=== PATIENT | male | born 1950 | race African-American/Black ===

== ENCOUNTER 2018-01-29 00:32 | Emergency (ER) | payer MEDICARE, OTHER ==
[2018-01-29 00:49] VITALS: BP 127/80
[2018-01-29] MEDS ORDERED: ONDANSETRON 4 MG TAB.RAPDIS PO ONE (01:13)
--- NOTE | 2018-01-29 01:15 | ER Document Report ---
ED Medical Screen (RME) - General Chief Complaint: Nausea/Vomiting Stated Complaint: ABDOMINAL PAIN Time Seen by Provider: 01/29/18 01:13 Notes: 68-year-old male chief complaint of upper abdominal pain and vomiting, states symptoms started after he ate fried chicken for dinner. Pain radiates around to his flank. Denies chest pain, shortness of breath, fever. Past medical history of appendectomy, denies any other abdominal surgeries. Denies hematemesis. TRAVEL OUTSIDE OF THE [place] IN LAST 30 DAYS: No - Related Data Allergies/Adverse Reactions: Insulins - Human [Insulins, Human] Allergy (Intermediate, Verified 05/25/14 13: 59) RASH aspirin [Aspirin] Allergy (Verified 05/25/14 14:14) Penicillins Allergy (Verified 05/25/14 13:59) simvastatin [Simvastatin] Allergy (Verified 05/25/14 14:15) Past Medical History - Past Medical History Cardiac Medical History: Reports: Hx Hypertension Denies: Hx Coronary Artery Disease, Hx Heart Attack Pulmonary Medical History: Reports: Hx Bronchitis Denies: Hx Asthma, Hx COPD, Hx Pneumonia Neurological Medical History: Denies: Hx Cerebrovascular Accident, Hx Seizures Renal/ Medical History: Denies: Hx Peritoneal Dialysis Musculoskeltal Medical History: Reports Hx Arthritis - SHOULDERS, RIGHT KNEE Psychiatric Medical History: Denies: Hx Depression Past Surgical History: Denies: Hx Pacemaker - Immunizations Hx Diphtheria, Pertussis, Tetanus Vaccination: Yes Physical Exam - Vital signs Vitals: Temp Pulse Resp BP Pulse Ox 97.9 F 86 18 127/80 H 100 01/29/18 00:40 01/29/18 00:40 01/29/18 00:40 01/29/18 00:40 01/29/18 00:40 - Abdominal Tenderness: Tender - Generalized upper abdominal pain, lower abdomen unremarkable, exam limited by sitting position Course - Vital Signs Vital signs: Temp Pulse Resp BP Pulse Ox 97.9 F 86 18 127/80 H 100 01/29/18 00:40 01/29/18 00:40 01/29/18 00:40 01/29/18 00:40 01/29/18 00:40 Doctor's Discharge - Discharge Referrals: LISA MENDOZA MD [Primary Care Provider] - Follow up as needed
--- NOTE | 2018-01-29 02:19 | ER Document Report ---
ED GI/ - General Chief Complaint: Nausea/Vomiting Stated Complaint: ABDOMINAL PAIN Time Seen by Provider: 01/29/18 01:13 Notes: Patient is a 68-year-old male that comes to the emergency department for chief complaint of upper abdominal pain and vomiting, he states that he had eaten a meal including fried chicken and within 30 minutes of this he started having upper abdominal pain and he has vomited 4 times. He denies flank pain, chest pain, shortness of breath, fever, hematemesis, abnormal bowel movements. Past medical history includes type 2 diabetes, hypertension, appendectomy. He states he has had a normal colonoscopy and endoscopy in the past. TRAVEL OUTSIDE OF THE [place] IN LAST 30 DAYS: No - Related Data Allergies/Adverse Reactions: Insulins - Human [Insulins, Human] Allergy (Intermediate, Verified 05/25/14 13: 59) RASH aspirin [Aspirin] Allergy (Verified 05/25/14 14:14) Penicillins Allergy (Verified 05/25/14 13:59) simvastatin [Simvastatin] Allergy (Verified 05/25/14 14:15) Past Medical History - General Information source: Patient - Social History Smoking Status: Never Smoker Frequency of alcohol use: None Drug Abuse: None Lives with: Family Family History: Reviewed & Not Pertinent Patient has suicidal ideation: No Patient has homicidal ideation: No - Past Medical History Cardiac Medical History: Reports: Hx Hypertension Denies: Hx Coronary Artery Disease, Hx Heart Attack Pulmonary Medical History: Reports: Hx Bronchitis Denies: Hx Asthma, Hx COPD, Hx Pneumonia Neurological Medical History: Denies: Hx Cerebrovascular Accident, Hx Seizures Renal/ Medical History: Denies: Hx Peritoneal Dialysis Musculoskeletal Medical History: Reports Hx Arthritis - SHOULDERS, RIGHT KNEE Psychiatric Medical History: Denies: Hx Depression Past Surgical History: Denies: Hx Pacemaker - Immunizations Hx Diphtheria, Pertussis, Tetanus Vaccination: Yes Hx Pneumococcal Vaccination: 05/11/14 Review of Systems - Review of Systems Constitutional: No symptoms reported EENT: No symptoms reported Cardiovascular: No symptoms reported Respiratory: No symptoms reported Gastrointestinal: See HPI Genitourinary: No symptoms reported Male Genitourinary: No symptoms reported Musculoskeletal: No symptoms reported Skin: No symptoms reported Hematologic/Lymphatic: No symptoms reported Neurological/Psychological: No symptoms reported Physical Exam - Vital signs Vitals: Temp Pulse Resp BP Pulse Ox 97.9 F 86 18 127/80 H 100 01/29/18 00:40 01/29/18 00:40 01/29/18 00:40 01/29/18 00:40 01/29/18 00:40 - Notes Notes: GENERAL: Alert, interacts well. No acute distress. HEAD: Normocephalic, atraumatic. EYES: Pupils equal, round, and reactive to light. Extraocular movements intact. ENT: Oral mucosa moist, tongue midline. NECK: Full range of motion. Supple. Trachea midline. LUNGS: Clear to auscultation bilaterally, no wheezes, rales, or rhonchi. No respiratory distress. HEART: Regular rate and rhythm. No murmur ABDOMEN: Soft, non-tender. Non-distended. Bowel sounds present in all 4 quadrants. EXTREMITIES: Moves all 4 extremities spontaneously. No edema, normal radial and dorsalis pedis pulses bilaterally. No cyanosis. BACK: no cervical, thoracic, lumbar midline tenderness. No saddle anesthesia, normal distal neurovascular exam. NEUROLOGICAL: Alert and oriented x3. Normal speech. [cranial nerves II through XII grossly intact]. PSYCH: Normal affect, normal mood. SKIN: Warm, dry, normal turgor. No rashes or lesions noted. Course - Re-evaluation Re-evalutation: After Zofran patient's vomiting resolved, afterwards his pain resolved. On reevaluation he has a very soft nontender abdomen. He denies any current complaints. CBC unremarkable, chemistry shows acute renal insufficiency, lipase unremarkable, LFTs and bilirubin unremarkable. Ultrasound does show gallstones and sludge, pains began after eating fried chicken, I do suspect the gallbladder was patient's source of pain. EKG was ordered in triage and this showed no acute abnormality. Patient did not endorse any chest pain or shortness of breath, he did have specific abdominal pain and vomiting initially. I discussed with patient. He states he is pain-free and he is ready to go home. He states that he has a follow-up in 3 days with his primary care provider, he states that he wants them to refer him to surgery, he states he wants to take his report with him. He declines surgical evaluation at this time. I did provide him with his report, I discussed follow-up and return precautions in detail, patient states satisfaction and agreement. - Vital Signs Vital signs: Temp Pulse Resp BP Pulse Ox 97.9 F 86 18 127/80 H 100 01/29/18 00:40 01/29/18 00:40 01/29/18 00:40 01/29/18 00:40 01/29/18 00:40 - Laboratory Result Diagrams: 01/29/18 00:28 01/29/18 00:28 Laboratory results interpreted by me: 01/29/18 01/29/18 00:28 00:28 Hgb 12.5 L RDW 18.0 H Chloride 108 H BUN 26 H Creatinine 1.90 H Est GFR ( Amer) 43 L Est GFR (Non-Af Amer) 35 L Glucose 141 H Direct Bilirubin 0.5 H Total Protein 8.5 H Discharge - Discharge Clinical Impression: Upper abdominal pain Vomiting Qualifiers: Vomiting type: unspecified Vomiting Intractability: non-intractable Nausea presence: with nausea Qualified Code(s): R11.2 - Nausea with vomiting, unspecified Condition: Good Disposition: HOME, SELF-CARE Additional Instructions: Your evaluation shows that your symptoms are most likely from gallbladder stones and sludge. You will most likely need surgical follow-up and surgery to remove your gallbladder. Follow-up with your primary care additionally, have your renal functioning rechecked, drink plenty of fluids to recover your kidney function. Avoid fatty foods because this will cause gallbladder pain, take Zofran if needed for nausea, return if you worsen including severe pain, fever, vomiting, or any other concerning or worsening symptoms. Prescriptions: Ondansetron [Zofran Odt 4 mg Tablet] 1 - 2 tab PO Q4H PRN #15 tab.rapdis PRN Reason: For Nausea/Vomiting Referrals: LISA MENDOZA MD [Primary Care Provider] - 02/01/18
[2018-01-29 02:38] LABS: ABSOLUTE BASOPHILS # (AUTO) 0.1 10^3/uL (0.0-0.2); ABSOLUTE EOSINOPHILS # (AUTO) 0.2 10^3/uL (0.0-0.6); ABSOLUTE LYMPHOCYTES (AUTO) 1.5 10^3/uL (0.5-4.7); ABSOLUTE MONOCYTES (AUTO) 0.7 10^3/uL (0.1-1.4); ABSOLUTE NEUT (AUTO) 6.5 10^3/uL (1.7-8.2); BASOPHILS % (AUTO) 0.8 % (0-2); EOSINOPHILS % (AUTO) 1.8 % (0-6); HEMATOCRIT 38.6 % (37.9-51.0); HEMOGLOBIN 12.5 g/dL (13.5-17.0); LYMPHOCYTES % (AUTO) 16.8 % (13-45); MEAN CORPUSCULAR HEMOGLOBIN 27.4 pg (27.0-33.4); MEAN CORPUSCULAR HGB CONC 32.3 g/dL (32.0-36.0); MEAN CORPUSCULAR VOLUME 85 fl (80-97); MONOCYTES % (AUTO) 8.3 % (3-13); PLATELET COUNT 332 10^3/uL (150-450); RED BLOOD COUNT 4.55 10^6/uL (4.35-5.55); SEGMENTED NEUTROPHILS % (AUTO) 72.3 % (42-78); TOTAL CELLS COUNTED % (AUTO) 100 %
[2018-01-29 03:02] LABS: ALBUMIN 4.3 g/dL (3.5-5.0); ANION GAP 6 (5-19); BILIRUBIN,DIRECT 0.5 mg/dL (0.0-0.4); BILIRUBIN,TOTAL 0.5 mg/dL (0.2-1.3); BLOOD UREA NITROGEN 26 mg/dL (7-20); CALCIUM 9.1 mg/dL (8.4-10.2); CARBON DIOXIDE 25 mmol/L (22-30); CHLORIDE 108 mmol/L (98-107); GLUCOSE 141 mg/dL (75-110); SODIUM 138.9 mmol/L (137-145); TOTAL PROTEIN 8.5 g/dL (6.3-8.2)
[2018-01-29 03:10] LABS: POTASSIUM 4.8 mmol/L (3.6-5.0)
[2018-01-29 03:11] LABS: ALANINE AMINOTRANSFERASE 27 U/L (21-72); ALKALINE PHOSPHATASE 67 U/L (38-126); ASPARTATE AMINO TRANSFERASE 58 U/L (17-59)
[2018-01-29] MEDS ORDERED: NORMAL SALINE 1000 ML 1,000 ML IV ONE (03:42)
--- NOTE | 2018-01-29 03:50 | RADIOLOGY REPORT (SQ) ---
EXAM DESCRIPTION: US ABDOMEN LIMITED COMPLETED DATE/TME: 01/29/2018 01:13 CLINICAL HISTORY: vomiting, RUQ pain COMPARISON: None. TECHNIQUE: Real-time sonographic images of the right upper abdomen were obtained using a curved multihertz transducer. FINDINGS: Pancreas: Pancreas is not well-visualized due to overlying structures. Vascular: The visualized portions of the aorta and IVC are unremarkable. Liver: The liver has normal contour and increased echogenicity. Hepatopedal flow in the portal vein. Findings confirmed with color and spectral Doppler imaging. The common bile duct measures 0.5 cm. Gallbladder: Echogenic structures within the gallbladder lumen compatible with gallstones. Minimal layering sludge. Normal wall thickness. No pericholecystic fluid. Negative reported sonographic Stewart sign. Right Kidney: The right kidney measures 10.8 cm in length. No hydronephrosis, solid renal mass, or shadowing calculi. IMPRESSION: 1. Cholelithiasis and gallbladder sludge. No other sonographic evidence of acute cholecystitis. 2. Hepatic steatosis.
--- NOTE | 2018-01-29 10:26 | EKG REPORT ---
SEVERITY:- OTHERWISE NORMAL ECG - SINUS RHYTHM BORDERLINE LEFT AXIS DEVIATION : Confirmed by: Sasha Yusuf MD 29-Jan-2018 10:26:07
== END 2018-01-29 05:20 | disposition home or self-care (01) ==
LOC: ER 00:32
DX: R10.10 Upper abdominal pain, unspecified (principal); R11.2 Nausea with vomiting, unspecified; I10 Essential (primary) hypertension; Z88.0 Allergy status to penicillin; Z88.6 Allergy status to analgesic agent
CPT/HCPCS: 93005; 99284; 96360; 36415; 83690; 85025; 80053; 76705; 93010; A9270; S0119

== ENCOUNTER 2018-02-05 06:36 | Day surgery (SDC) | payer MEDICARE, OTHER ==
[~2018-02-05 06:36] MED LIST: ACETAMINOPHEN 325 MG TABLET PO PRN; CIPROFLOXACIN 400 MG/D5W RTU 400 MG/200 ML RTUPB IV PRN
[2018-02-05] MEDS ORDERED: CIPROFLOXACIN 400 MG/D5W RTU 400 MG/200 ML RTUPB IV ONE (06:37)
[2018-02-05] MEDS ORDERED: FENTANYL CITRATE INJ/PF 100 MCG/2 ML AMPUL ONE ×2 (07:01→10:36)
[2018-02-05] MEDS ORDERED: MIDAZOLAM 2 MG/2 ML INJ ONE (07:01)
[2018-02-05] MEDS ORDERED: PROPOFOL INJ 200 MG/20 ML VIAL IV ONE (07:01)
[2018-02-05 07:42] LABS: HEMATOCRIT 37.4 % (37.9-51.0); HEMOGLOBIN 12.4 g/dL (13.5-17.0); MEAN CORPUSCULAR HEMOGLOBIN 27.6 pg (27.0-33.4); MEAN CORPUSCULAR HGB CONC 33.3 g/dL (32.0-36.0); MEAN CORPUSCULAR VOLUME 83 fl (80-97); PLATELET COUNT 304 10^3/uL (150-450); RED CELL DISTRIBUTION WIDTH 18.3 % (11.5-14.0); WHITE BLOOD COUNT 6.9 10^3/uL (4.0-10.5)
[2018-02-05] MEDS ORDERED: BUPIVACAINE HCL 0.5 % INJ/PF 30 ML SDV ONE (07:58)
[2018-02-05 08:11] LABS: ALANINE AMINOTRANSFERASE 29 U/L (21-72); ALBUMIN 3.6 g/dL (3.5-5.0); ALKALINE PHOSPHATASE 53 U/L (38-126); AMYLASE 205 U/L (30-110); ANION GAP 7 (5-19); ASPARTATE AMINO TRANSFERASE 25 U/L (17-59); BILIRUBIN,DIRECT 0.3 mg/dL (0.0-0.4); BILIRUBIN,TOTAL 0.3 mg/dL (0.2-1.3); BLOOD UREA NITROGEN 14 mg/dL (7-20); CALCIUM 9.1 mg/dL (8.4-10.2); CARBON DIOXIDE 25 mmol/L (22-30); CHLORIDE 108 mmol/L (98-107); GLUCOSE 114 mg/dL (75-110); LIPASE 1427.2 U/L (23-300); POTASSIUM 4.3 mmol/L (3.6-5.0); SODIUM 139.7 mmol/L (137-145); TOTAL PROTEIN 6.7 g/dL (6.3-8.2)
[2018-02-05] MEDS ORDERED: ACETAMINOPHEN 1,000 MG/100 ML RTUPB IV ONE (08:51)
[2018-02-05] MEDS ORDERED: METOCLOPRAMIDE HCL INJ/PF 10 MG/2 ML SDV IV ONE (09:30)
[2018-02-05] MEDS ORDERED: PROMETHAZINE HCL INJ 25 MG/1 ML VIAL IV PRN ×2 (09:30)
[2018-02-05] MEDS ORDERED: FENTANYL CITRATE INJ/PF 100 MCG/2 ML AMPUL IV PRN ×3 (09:30)
[2018-02-05] MEDS ORDERED: MORPHINE SULFATE 10 MG/ML INJ IV PRN (09:30)
[2018-02-05] MEDS ORDERED: DIPHENHYDRAMINE HCL 50 MG/ML VIAL IV PRN (09:30)
[2018-02-05] MEDS ORDERED: FAMOTIDINE INJ/PF 20 MG/2 ML SDV IV ONE (09:30)
[2018-02-05] MEDS ORDERED: MEPERIDINE HCL/PF INJ 25 MG/1 ML DISP.SYRIN IV PRN (09:30)
[2018-02-05] MEDS ORDERED: OXYCODONE-ACETAMINOPHEN 5-325 MG TABLET PO PRN (10:20)
--- NOTE | 2018-02-05 10:20 | Discharge Summary ---
Discharge Summary (SDC) - Discharge Final Diagnosis: Acute cholecystitis with cholelithiasis Date of Surgery: 02/05/18 Discharge Date: 02/05/18 Condition: Good Treatment or Instructions: [facility] [address], [place] [address] Discharge Instructions: Laparoscopic Surgery 1. General Information: a. DO NOT DRIVE a car or operate dangerous machinery for 3-4 days or while taking narcotic pain pills. b. DO NOT consume alcohol, tranquilizers, sleeping medications or any non- prescribed medications for 24 hours unless approved by your doctor or as long as taking narcotic prescription medications. c. DO NOT make important decisions or sign any important papers for the first 24 hours after surgery. d. When discharged home the same day of surgery have a responsible person with you for the first night. 2. Activity Restrictions: 2 weeks. a. NO heavy lifting, straining abdominal muscles, bending over a lot, yard work, house work, or sports for 2 weeks. b. c. It is fine to go for walks, up and down steps, ride in a car. d. Elevate your head when sleeping/resting. 3. Treatment: a. You may shower 24 hours after surgery, no baths or swimming for 2 weeks. Remove band-aids or dressings before shower but leave paper strips (steri-strips ) on the skin to fall off on their own. If still on at postoperative visit they will be removed then. b. Drainage of fluid or blood is not unusual from an incision. If occurs, you can clean with peroxide and cotton ball daily and cover with dry gauze until the wound seals. c. If a lot of bleeding occurs, you can hold pressure with a gauze or cloth over the site for 10 minutes and it will usually stop. If bleeding continues you will need to call for possible evaluation in office or emergency room. 4. Medications: a. Stop the narcotic when able since you cannot take it and drive, and they cause constipation. You may switch to plain Tylenol, Advil or Aleve as you transition from the narcotic. Many adults find good pain relief with Advil 600- 800 mg three times a day with meals. This can cause indigestion, ulcers, and kidney problems with long-term use. b. You should resume all normal medications unless a change is specified by your doctors. c. Diet; Begin with clear liquids and may progress to your normal diet if not nauseated. No high fat, high protein foods the day of surgery. Normal diet 6. The following may occur after laparoscopic surgery: a. Shoulder or upper back ache from retained gas that should resolve in 1-2 days b. Soreness and bruising at incision sites will resolve with time. c. Scrotal swelling (labia in women) and bruising is often seen after hernia surgery. d. Sore throat e. Fatigue may last days to weeks. f. Difficulty urinating may occur and may need to come into emergency room for urinary catheter placement. 7. Notify Physician If: a. Worsening or pain not improved with pain medication b. Persistent nausea and vomiting c. Fever above 101 d. Persistent bleeding or swelling at operative site e. Unable to urinate and uncomfortable bladder 6-8 hours after surgery 8..Follow Up Care: a. Schedule a follow up appointment with your doctor for 2 weeks. In the event of any postoperative problems or questions or you may call the office during business hours or the On-Call physician evenings and weekends at [facility]. [facility] I understand the instructions for my postoperative care as described above and a copy has been given to me. Patient/Significant Other Witness Date Referrals: LISA MENDOZA MD [Primary Care Provider] - Discharge Diet: As Tolerated Discharge Activity: Activity As Tolerated Home Care Assistance: None Needed Report the Following to Your Physician Immediately: Shortness of Breath, Increase in Pain Other Items to Report to MD: Please make appointment with [facility] , Amanda AGUAYO, in 1
--- NOTE | 2018-02-05 10:24 | Operative Report ---
Operative Report DATE OF SURGERY: 02/05/18 PREOPERATIVE DIAGNOSIS: Acute cholecystitis with cholelithiasis POSTOPERATIVE DIAGNOSIS: Same OPERATION: Laparoscopic cholecystectomy SURGEON: EVA STANLEY ANESTHESIA: GA TISSUE REMOVED OR ALTERED: 1 gallbladder with contents COMPLICATIONS: None ESTIMATED BLOOD LOSS: Scant INTRAOPERATIVE FINDINGS: See below PROCEDURE: After obtaining informed consent, the patient was taken to the operating room. General Anesthesia was induced; the arms were extended, and the abdomen was exposed, and prepped and draped in a sterile fashion. Instrumentation was set up for laparoscopic cholecystectomy. Surgical plan and surgical timeout were conducted. A vertical incision was made above the umbilicus, and a verres needle was inserted uneventfully into the peritoneal cavity. Pneumoperitoneum was established. The verres needle was removed and a 5 mm trocar was inserted and a 5 mm flexible laparoscope was inserted. Visualization of the peritoneal cavity confirmed safe uneventful entry. Under direct visualization 3 additional 5 mm ports were established, one in the subxiphoid position and second in the subcostal position. Due to the patient's body habitus, despite listening the patient in max reverse Trendelenburg position and tilted to the left side, there was incomplete visualization of the infundibulum of the gallbladder. Therefore the fifth port was placed in the extreme lateral position, and using a fan retractor, we accomplished visualization of the hepatobiliary anatomy which revealed no anatomic variations. A grasper was placed on the fundus of the gallbladder and the gallbladder is elevated over the right surface of the liver; a second grasper was used to grasp the infundibulum of the gallbladder. The neck of the gallbladder and junction with the cystic duct was dissected out. The Cystic artery was in its usual location medial and cephalad to the cystic duct. The node of Calot was swept away, out of the plane of dissection. The cystic artery was surrounded with a right angle clamp, clipped twice proximally and divided with laparoscopic scissors. We now opened the triangle of Calot by dividing the peritoneal reflection on both the medial and lateral sides of the cystic duct infundibular junction. The critical view was obtained. Photographs were taken. We now milked the cystic duct of any possible stones, clipped the cystic duct approximately 2 times once distally and divided with scissors. The gallbladder was now removed from the undersurface of the liver using hook cautery dissection. There was a significant amount of edema, but the gallbladder came off of the inferior surface of the right lobe of the liver uneventfully. Graspers were repositioned and the gallbladder was removed uneventfully from the abdominal cavity through the super umbilical port site incision. There was some spillage of stones, but all stones were retrieved uneventfully. The specimen was examined, then passed off to pathology for permanent analysis. We returned to the peritoneal cavity check for bleeding, and evidence of bile leak, and there was none. We Confirmed satisfactory placement of clips on cystic duct and cystic artery were secured . At this point we felt the operation was complete. The subcutaneous tissue was then anesthetized with quarter percent Marcaine Sponge and needle counts are correct. All ports removed under direct visualization pneumoperitoneum evacuated, and 5 mm port wounds closed with 3-0 Vicryl suture, benzoin and Steri-Strips. The patient was extubated, and taken to the recovery room in stable condition.
[2018-02-05] MEDS ORDERED: OXYCODONE-ACETAMINOPHEN 5-325 MG TABLET ONE (11:39)
[2018-02-05] MEDS ORDERED: ROCURONIUM BROMIDE INJ 50 MG/5 ML VIAL IV ONE (13:24)
[2018-02-05] MEDS ORDERED: DEXAMETHASONE SOD PHOSPHATE INJ 4 MG/1 ML VIAL ONE (13:24)
[2018-02-05] MEDS ORDERED: SUCCINYLCHOLINE CHLORIDE INJ 200 MG/10 ML VIAL ONE (13:24)
[2018-02-05] MEDS ORDERED: ONDANSETRON HCL INJ/PF 4 MG/2 ML SDV ONE (13:24)
[2018-02-05] MEDS ORDERED: KETOROLAC TROMETHAMINE 60 MG/2 ML SDV ONE (13:24)
[2018-02-05 15:06] VITALS: BP 130/89
== END 2018-02-05 12:30 | disposition home or self-care (01) ==
LOC: OROUT 06:36
PROVIDERS: ATTEND Surgery
DX: K80.10 Calculus of gallbladder with chronic cholecystitis without obstruction (principal); E03.9 Hypothyroidism, unspecified; I10 Essential (primary) hypertension; E11.9 Type 2 diabetes mellitus without complications; I25.10 Atherosclerotic heart disease of native coronary artery without angina pectoris; M19.90 Unspecified osteoarthritis, unspecified site; E66.9 Obesity, unspecified; Z68.35 Body mass index [BMI] 35.0-35.9, adult; Z87.891 Personal history of nicotine dependence; Z79.899 Other long term (current) drug therapy; Z88.0 Allergy status to penicillin
CPT/HCPCS: 86900; 86901; 36415; 86850; 82962; 82150; 83690; 85027; 80076; 80048; 88304 ×2; 47562; J2250; J3490 ×2; J1100; J1885; J3010; A9270; J0330; J2405; J2704; J0744; J0131; 790

== ENCOUNTER → 2018-04-13 | Outpatient (CLI) | payer MEDICARE, OTHER ==
--- NOTE | 2018-04-13 16:52 | RADIOLOGY REPORT (SQ) ---
EXAM DESCRIPTION: MRI HEAD COMBO COMPLETED DATE/TIME: 04/13/2018 4:30 pm REASON FOR STUDY: M79.9 SOFT TISSUE DISORDER, UNSPECIFIED M79.9 SOFT TISSUE DISORDER, UNSPECIFIED r apidly growing scalp mass behind left ear COMPARISON: None. TECHNIQUE: Multiplanar imaging includes noncontrasted T1, T2, FLAIR, diffusion with ADC map and post gadolinium contrast T1 sequences. Images stored on PACS. CONTRAST TYPE AND DOSE: 10 mL Prohance. RENAL FUNCTION: Estimated GFR 41 LIMITATIONS: None. FINDINGS: In the left posterior temporal scalp, dorsal and superior to the left ear, a heterogeneous soft tissue mass is present measuring 5 cm AP x 5 cm craniocaudad x 2 cm transverse. This has signa l isointense to muscle on T1, slightly higher in signal intensity on T2 than muscle, with avid hetero geneous gadolinium enhancement. There are flow voids within the mass. Mass appears to arise from ei ther the periosteum, or loose areolar connective tissue in the scalp, and extend into the subcutaneou s fat. There is no erosion of the outer table of the calvarium, and no abnormal calvarium marrow sig nal. Findings are worrisome for a sarcoma or carcinoma, this was discussed with Dr. Kiran. ANATOMY: No anomalies. Normal vascular flow voids. Pituitary fossa normal. CSF SPACES: Normal in size and contour. No hemorrhage. CEREBRUM: Sulci and gyri normal in size and contour. Normal white matter signal on FLAIR imaging. No evidence of hemorrhage, mass, or extraaxial fluid collection. No abnormal enhancement post contrast. POSTERIOR FOSSA: No signal alteration. No hemorrhage. No edema, masses, or mass effect. Internal meghan tory canals, cerebellopontine angles, mastoids normal. No enhancing lesions. No abnormal enhancement post contrast. DIFFUSION IMAGING: Negative for acute or subacute infarction. ORBITS: No masses. Globes normal. PARANASAL SINUSES: No fluid levels. Mucosa normal. OTHER: No other significant finding. IMPRESSION: 5 x 5 x 2 cm left posterior temporal region scalp mass with characteristics highly suspi cious for malignancy. No intracranial pathology. EVIDENCE OF ACUTE STROKE: NO. TECHNICAL DOCUMENTATION: JOB ID: [id number] [employer]- All Rights Reserved Reading location - IP/workstation name: [email or web address]
== END ==
LOC: RAD 15:18
PROVIDERS: ATTEND Surgery
DX: R22.0 Localized swelling, mass and lump, head (principal)
CPT/HCPCS: 70553; 82565

== ENCOUNTER → 2018-04-29 | Outpatient (CLI) | payer MEDICARE, OTHER ==
[2018-04-29 13:16] LABS: ANION GAP 9 (5-19); BLOOD UREA NITROGEN 29 mg/dL (7-20); CALCIUM 9.4 mg/dL (8.4-10.2); CARBON DIOXIDE 24 mmol/L (22-30); CHLORIDE 107 mmol/L (98-107); GLUCOSE 106 mg/dL (75-110); POTASSIUM 4.8 mmol/L (3.6-5.0); SODIUM 139.7 mmol/L (137-145)
== END ==
LOC: OD 12:32
PROVIDERS: ATTEND Internal Medicine Geriatric Medicine
DX: I10 Essential (primary) hypertension (principal)
CPT/HCPCS: 36415; 80048

== ENCOUNTER → 2018-04-30 | Outpatient (CLI) | payer MEDICARE, OTHER ==
--- NOTE | 2018-04-30 10:00 | RADIOLOGY REPORT (SQ) ---
EXAM DESCRIPTION: CT SOFT TISSUE NECK WITH COMPLETED DATE/TIME: 04/30/2018 9:26 am REASON FOR STUDY: R22.0 LOCALIZED SWELLING, MASS AND LUMP, HEAD R22.0 LOCALIZED SWELLING, MASS AND LUMP, HEAD COMPARISON: MRI brain 04/13/2018 CT chest 08/15/2008 TECHNIQUE: Post IV contrasted scanning from skull base through lung apices with review of bone, soft tissue and lung windows. Reconstructed coronal and sagittal MPR images reviewed. All images stored on PACS. All CT scanners at this facility use dose modulation, iterative reconstruction, and/or weight based d osing when appropriate to reduce radiation dose to as low as reasonably achievable (ALARA). [facility]: Dose Right [facility]: CareDose [facility]: Dose Right [facility]: Teradose 4D [facility]: [email or web address] CONTRAST TYPE AND DOSE: contrast/concentration: Isovue 350.00 mg/ml; Total Contrast Delivered: 40.0 ml; Total Saline Delivered: 55.0 ml RENAL FUNCTION: Estimated GFR of 50 RADIATION DOSE: 22 mGy . LIMITATIONS: None. FINDINGS: In the left posterior temporal/occipital scalp, pain malignant appearing soft tissue mass is present measuring 5.5 cm craniocaudad by 5 cm AP x 2 cm transverse. Since the prior MRI, patient has developed a calcification in the superficial surface of the tumor on axial image 7. No underlyin g aggressive bony destruction. Overall, this is similar in size compared to MRI 04/13/2018 SKULL BASE: Inferior brain parenchyma unremarkable MAJOR SALIVARY GLANDS: No solid or cystic masses. No inflammatory changes. LYMPHADENOPATHY: No bulky cervical adenopathy. Less than 5 mm short axis lymph nodes are seen in the bilateral carotid spaces and posterior triangle regions. MUCOSAL MASSES OR ASYMMETRY: No mucosal masses or asymmetry. LARYNX/CORDS: No abnormal findings. VASCULAR STRUCTURES: There is questionable wall thickening and luminal narrowing in the distal left c ommon carotid artery extending up into the proximal internal carotid artery. Left carotid Doppler re commended to evaluate for flow significant stenosis proximal left ICA. LUNG APICES: Clear. BONES: Intact. THYROID: Normal size. No masses. PARANASAL SINUSES: Clear. OTHER: There is spotty residual thymic tissue in the anterior mediastinum unchanged CT chest 08/15/2008 IMPRESSION: Left posterior temporal/occipital scalp mass measuring 5.5 x 5 x 2 cm in size. No cervical adenopathy Wall thickening and luminal narrowing along the left distal common carotid artery and left carotid bi furcation extending into the proximal left ICA. Correlation with carotid Doppler recommended, to maine luate for flow significant stenosis TECHNICAL DOCUMENTATION: JOB ID: [id number] Quality ID # [id number]: Final reports with documentation of one or more dose reduction techniques (e.g., Au tomated exposure control, adjustment of the mA and/or kV according to patient size, use of iterative reconstruction technique) 2010 [employer]- All Rights Reserved Reading location - IP/workstation name: [email or web address]
--- NOTE | 2018-04-30 10:22 | RADIOLOGY REPORT (SQ) ---
EXAM DESCRIPTION: CT ORBIT/SELLA WITHOUT COMPLETED DATE/TIME: 04/30/2018 9:26 am REASON FOR STUDY: R22.0 LOCALIZED SWELLING, MASS AND LUMP, HEAD R22.0 LOCALIZED SWELLING, MASS AND LUMP, HEAD COMPARISON: None. TECHNIQUE: Noncontrasted thin section axial images through the temporal bones and skull base were ob tained and reviewed at bone windows and bone algorithm with coronal and sagittal reconstructions. All CT scanners at this facility use dose modulation, iterative reconstruction, and/or weight based d osing when appropriate to reduce radiation dose to as low as reasonably achievable (ALARA). [facility]: Dose Right [facility]: CareDose [facility]: Dose Right [facility]: Teradose 4D [facility]: [employer] RADIATION DOSE: 16.5 mGy. LIMITATIONS: None. FINDINGS: A 5.5 x 5 x 2 cm malignant appearing mass is present in the left posterior temporal/occipi dat scalp. There is calcification or radiopaque ointment in a small skin ulceration over the central portion of the tumor. No aggressive demineralization or erosion of the calvarium. No skull lytic o r blastic lesions. RIGHT SIDE: EXTERNAL AUDITORY CANAL: Widely patent. TYMPANIC MEMBRANE: No masses, thickening or medial retraction. OSSICLES AND MIDDLE EAR CAVITY: Normal ossicles. No middle ear masses or fluid. INNER EAR STRUCTURES: Normal vestibule and cochlea. Normal aqueducts. INTERNAL AUDITORY CANAL: Normal bony canal without narrowing or widening. No calcified or ossified m asses. TEMPOROMANDIBULAR JOINT: Normal. MASTOID AIR CELLS: Clear. LEFT SIDE: EXTERNAL AUDITORY CANAL: Widely patent. TYMPANIC MEMBRANE: No masses, thickening or medial retraction. OSSICLES AND MIDDLE EAR CAVITY: Normal ossicles. No middle ear masses or fluid. INNER EAR STRUCTURES: Normal vestibule and cochlea. Normal aqueducts. INTERNAL AUDITORY CANAL: Normal bony canal without narrowing or widening. No calcified or ossified m asses. TEMPOROMANDIBULAR JOINT: Normal. MASTOID AIR CELLS: Clear. CENTRAL SKULL BASE: Normal foramina. No lytic or blastic lesions. INFERIOR BRAIN: Limited view. No acute findings. LIMITED VIEW OF PARANASAL SINUSES IN THE FIELD OF VIEW: Normal. IMPRESSION: LEFT POSTERIOR TEMPORAL/ OCCIPITAL MALIGNANT APPEARING SCALP SOFT TISSUE MASS. NO AGGRE SSIVE CALVARIAL EROSION. OTHERWISE, UNREMARKABLE NONCONTRASTED TEMPORAL BONE CT. TECHNICAL DOCUMENTATION: JOB ID: [id number] Quality ID # [id number]: Final reports with documentation of one or more dose reduction techniques (e.g., Au tomated exposure control, adjustment of the mA and/or kV according to patient size, use of iterative reconstruction technique) 2010 [employer]- All Rights Reserved Reading location - IP/workstation name: [email or web address]
== END ==
LOC: RAD 09:01
PROVIDERS: ATTEND Internal Medicine Geriatric Medicine
DX: R22.0 Localized swelling, mass and lump, head (principal)
CPT/HCPCS: 70480; 70491; 82565

== ENCOUNTER → 2018-05-20 | Outpatient (CLI) | payer MEDICARE, OTHER ==
--- NOTE | 2018-05-20 15:22 | RADIOLOGY REPORT (SQ) ---
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 RADIONUCLIDE AND DOSE: 25.8 mCi technetium 99m labeled red blood cells The route of agent administration: Intravenous TECHNIQUE: Following administration of the radionuclide, gated images of the heart are obtained in t hree projections. Left ventricular functional analysis performed. LIMITATIONS: None. FINDINGS: LEFT VENTRICULAR FUNCTION: EJECTION FRACTION: 70%. END-DIASTOLIC VOLUME: 76 mL. END-SYSTOLIC VOLUME: 31 mL. WALL MOTION: No focal wall motion abnormalities. OTHER: No other significant finding. IMPRESSION: NORMAL CARDIAC MUGA STUDY. NORMAL LEFT VENTRICULAR FUNCTION WITH VALUES ABOVE. TECHNICAL DOCUMENTATION: JOB ID: [id number] [employer]- All Rights Reserved Reading location - IP/workstation name: [email or web address]
== END ==
LOC: RAD 10:34
PROVIDERS: ATTEND Internal Medicine Medical Oncology
DX: I42.7 Cardiomyopathy due to drug and external agent (principal); T45.1X5A Adverse effect of antineoplastic and immunosuppressive drugs, initial encounter
CPT/HCPCS: 78472; A9560; Q9969

== ENCOUNTER → 2018-06-10 | Outpatient (CLI) | payer MEDICARE, OTHER ==
--- NOTE | 2018-06-10 17:21 | RADIOLOGY REPORT (SQ) ---
EXAM DESCRIPTION: U/S THYROID/SFT TISS HD NECK COMPLETED DATE/TIME: 06/10/2018 5:02 pm REASON FOR STUDY: E06.3 AUTOIMMUNE THYROIDITIS E06.3 AUTOIMMUNE THYROIDITIS COMPARISON: None. TECHNIQUE: Dynamic and static brennan-scale images acquired of the thyroid gland. Selected additional c olor/power Doppler images recorded. All images stored to PACS. LIMITATIONS: None. FINDINGS: RIGHT LOBE: Normal size. Heterogeneous echotexture. No cystic or solid masses. LEFT LOBE: Normal size. Heterogeneous echotexture. No cystic or solid masses. ISTHMUS: Normal size. Heterogeneous echotexture. No cystic or solid masses. OTHER: No other significant finding. IMPRESSION: NORMAL THYROID ULTRASOUND. TECHNICAL DOCUMENTATION: JOB ID: [id number] [employer]- All Rights Reserved Reading location - IP/workstation name: [email or web address]
== END ==
LOC: RAD 19:02
PROVIDERS: ATTEND Internal Medicine Geriatric Medicine
DX: E06.3 Autoimmune thyroiditis (principal)
CPT/HCPCS: 76536

== ENCOUNTER → 2018-09-09 | Outpatient (CLI) | payer MEDICARE, OTHER ==
--- NOTE | 2018-09-09 15:18 | RADIOLOGY REPORT (SQ) ---
EXAM DESCRIPTION: U/S EXTREMITY NONVASCULAR LTD COMPLETED DATE/TIME: 09/09/2018 12:06 pm REASON FOR STUDY: LOCALIZED SWELLING, MASS AND LUMP, LEFT LOWER LIMB (R22.42) R22.42 LOCALIZED SWEL LING, MASS AND LUMP, LEFT LOWER LIMB COMPARISON: None TECHNIQUE: Static and real time brennan scale ultrasound Doppler spectral analysis, and color Doppler a cquired in the left anterior thigh. LIMITATIONS: None. FINDINGS: Sonographic imaging of the area of concern in the anterior left thigh shows multiple well- circumscribed hypoechoic lesions with somewhat echogenic satinder. The largest measures 18 x 15 x 2 mm. The next largest measures 13 x 9 x 2 mm. IMPRESSION: Low-density lesions in the anterior left thigh as described. Possible chain of lymph no paula.c TECHNICAL DOCUMENTATION: JOB ID: [id number] [employer]- All Rights Reserved Reading location - IP/workstation name: [email or web address]
== END ==
LOC: RAD 11:06
PROVIDERS: ATTEND Internal Medicine Geriatric Medicine
DX: R22.42 Localized swelling, mass and lump, left lower limb (principal)
CPT/HCPCS: 76882

== ENCOUNTER 2019-06-15 22:56 | Emergency (ER) | payer MEDICARE, OTHER ==
[2019-06-15] MEDS ORDERED: ACETAMINOPHEN 325 MG TABLET PO ONE (23:37)
[2019-06-16] MEDS ORDERED: TRAMADOL HCL 50 MG TABLET PO ONE (00:15)
--- NOTE | 2019-06-16 00:16 | ER Document Report ---
ED Medical Screen (RME) - General Chief Complaint: Testicular Pain Stated Complaint: LEG PAIN Time Seen by Provider: 06/16/19 00:13 Primary Care Provider: LISA MENDOZA MD [Primary Care Provider] - Follow up as needed Notes: Patient states that he developed left groin pain yesterday that worsened today. Patient states that he has pain to the left groin and left lower extremity. Patient states pain does radiate into the scrotum. Patient states that he is unable to bear weight due to the pain. Patient denies any nausea vomiting or urinary symptoms. On exam in triage, patient is tender to the left lower q uadrant of the abdomen. Patient with a history of diabetes, non-Hodgkin's lymphoma. I have greeted and performed a rapid initial assessment of this patient. A comprehensive ED assessment and evaluation of the patient, analysis of test results and completion of the medical decision making process will be conducted by additional ED providers. TRAVEL OUTSIDE OF THE [place] IN LAST 30 DAYS: No - Related Data Allergies/Adverse Reactions: Insulins - Human [Insulins, Human] Allergy (Intermediate, Verified 06/16/19 00:02) RASH aspirin [Aspirin] Allergy (Verified 06/16/19 00:02) Penicillins Allergy (Verified 06/16/19 00:02) simvastatin [Simvastatin] Allergy (Verified 06/16/19 00:02) Past Medical History - Past Medical History Cardiac Medical History: Reports: Hx Hypertension Denies: Hx Coronary Artery Disease, Hx Heart Attack Pulmonary Medical History: Reports: Hx Bronchitis Denies: Hx Asthma, Hx COPD, Hx Pneumonia Neurological Medical History: Denies: Hx Cerebrovascular Accident, Hx Seizures Renal/ Medical History: Denies: Hx Peritoneal Dialysis Musculoskeltal Medical History: Reports Hx Arthritis - SHOULDERS, RIGHT KNEE Psychiatric Medical History: Denies: Hx Depression Past Surgical History: Denies: Hx Pacemaker - Immunizations Hx Diphtheria, Pertussis, Tetanus Vaccination: Yes Physical Exam - Vital signs Vitals: Temp Pulse Resp BP Pulse Ox 97.9 F 88 18 129/61 H 98 06/15/19 23:11 06/15/19 23:11 06/15/19 23:11 06/15/19 23:11 06/15/19 23:11 - General General appearance: Alert In distress: Mild Notes: Left lower quadrant tenderness, left groin tenderness, no spinal midline tenderness Course - Vital Signs Vital signs: Temp Pulse Resp BP Pulse Ox 97.9 F 88 18 129/61 H 98 06/15/19 23:11 06/15/19 23:11 06/15/19 23:11 06/15/19 23:11 06/15/19 23:11 Doctor's Discharge - Discharge Referrals: LISA MENDOZA MD [Primary Care Provider] - Follow up as needed
--- NOTE | 2019-06-16 00:55 | RADIOLOGY REPORT (SQ) ---
EXAM DESCRIPTION: XR HIP 2 OR MORE VIEWS COMPLETED DATE/TME: 06/16/2019 00:14 CLINICAL HISTORY: 69 years, Male, left hip pain COMPARISON: None. NUMBER OF VIEWS: 2 TECHNIQUE: AP and lateral views left hip LIMITATIONS: None. FINDINGS: Negative for acute fracture or dislocation. Moderate degenerative change of the hips bilaterally with joint space narrowing and spur formation. Soft tissues are unremarkable IMPRESSION: Moderate degenerative change copyright 2010 [employer]- All Rights Reserved
--- NOTE | 2019-06-16 01:14 | RADIOLOGY REPORT (SQ) ---
EXAM DESCRIPTION: US SCROTUM COMPLETED DATE/TME: 06/16/2019 00:14 CLINICAL HISTORY: 69 years, Male, scrotal pain COMPARISON: None. TECHNIQUE: Transverse and longitudinal sonographic images of the testes LIMITATIONS: None. FINDINGS: The right testicle measures 4.5 x 3.3 x 2.7 cm, the left 4.2 x 2.9 x 3.1 cm. Negative for intratesticular mass. Doppler and spectral analysis with color flow shows normal flow to each testicle. Moderate-sized hydroceles are noted bilaterally. The epididymides are unremarkable bilaterally. IMPRESSION: Moderate bilateral hydroceles. Remainder unremarkable copyright 2010 [employer]- All Rights Reserved
[2019-06-16] MEDS ORDERED: ACETAMINOPHEN 325 MG TABLET ONE (02:09)
[2019-06-16 02:46] LABS: ABSOLUTE BASOPHILS # (AUTO) 0.1 10^3/uL (0.0-0.2); ABSOLUTE LYMPHOCYTES (AUTO) 1.5 10^3/uL (0.5-4.7); ABSOLUTE MONOCYTES (AUTO) 1.3 10^3/uL (0.1-1.4); ABSOLUTE NEUT (AUTO) 10.6 10^3/uL (1.7-8.2); BASOPHILS % (AUTO) 0.4 % (0-2); EOSINOPHILS % (AUTO) 0.2 % (0-6); HEMATOCRIT 41.3 % (37.9-51.0); HEMOGLOBIN 13.8 g/dL (13.5-17.0); LYMPHOCYTES % (AUTO) 11.1 % (13-45); MEAN CORPUSCULAR HEMOGLOBIN 30.2 pg (27.0-33.4); MEAN CORPUSCULAR HGB CONC 33.4 g/dL (32.0-36.0); MEAN CORPUSCULAR VOLUME 91 fl (80-97); MONOCYTES % (AUTO) 9.9 % (3-13); PLATELET COUNT 338 10^3/uL (150-450); RED BLOOD COUNT 4.57 10^6/uL (4.35-5.55); RED CELL DISTRIBUTION WIDTH 15.8 % (11.5-14.0); SEGMENTED NEUTROPHILS % (AUTO) 78.4 % (42-78); TOTAL CELLS COUNTED % (AUTO) 100 %; WHITE BLOOD COUNT 13.5 10^3/uL (4.0-10.5)
[2019-06-16 03:09] LABS: ALBUMIN 4.5 g/dL (3.5-5.0); ALKALINE PHOSPHATASE 61 U/L (38-126); ANION GAP 15 (5-19); ASPARTATE AMINO TRANSFERASE 22 U/L (17-59); BILIRUBIN,DIRECT 0.3 mg/dL (0.0-0.4); BILIRUBIN,TOTAL 0.5 mg/dL (0.2-1.3); BLOOD UREA NITROGEN 14 mg/dL (7-20); CALCIUM 9.7 mg/dL (8.4-10.2); CARBON DIOXIDE 20 mmol/L (22-30); CHLORIDE 105 mmol/L (98-107); GLUCOSE 117 mg/dL (75-110); TOTAL PROTEIN 7.9 g/dL (6.3-8.2)
[2019-06-16 05:35] LABS: APPEARANCE,URINE CLEAR; BILIRUBIN,URINE NEGATIVE (NEGATIVE); COLOR,URINE YELLOW; GLUCOSE, URINE NEGATIVE (NEGATIVE); KETONES,URINE TRACE mg/dL (NEGATIVE); LEUKOCYTE ESTERASE,URINE NEGATIVE (NEGATIVE); NITRITE,URINE NEGATIVE (NEGATIVE); PROTEIN,URINE 30 mg/dL (NEGATIVE); URINE SPECIFIC GRAVITY 1.024; UROBILINOGEN,URINE NEGATIVE mg/dL (<2.0)
[2019-06-16] MEDS ORDERED: KETOROLAC TROMETHAMINE 10 MG TABLET PO ONE (05:50)
[2019-06-16] MEDS ORDERED: OXYCODONE-ACETAMINOPHEN 5-325 MG TABLET PO ONE (06:50)
[2019-06-16 07:25] VITALS: BP 146/95
--- NOTE | 2019-06-20 13:48 | ER Document Report ---
Entered by SEUN SAAVEDRA SCRIBE 06/16/19 0648 Acting as scribe for:TWYLA FIGUEROA MD ED General - General Chief Complaint: Testicular Pain Stated Complaint: LEG PAIN Time Seen by Provider: 06/16/19 00:13 Primary Care Provider: LISA MENDOZA MD [Primary Care Provider] - Follow up in 1 week Information source: Patient Notes: 69 year old male presents to the emergency department with left side groin pain that began 2 days ago. Patient states that after he mowed his lawn, he started to feel the pain in his left groin. He stated that later that night he took Tylenol and "tossed and turned" throughout the night. Patient stated that he now "can't walk" due to the pain and he has to "drag his left leg". Patient denies abdominal pain. Patient reports that in regards to his lab work, his PCP stated "I don't like what I see". TRAVEL OUTSIDE OF THE [place] IN LAST 30 DAYS: No - Related Data Allergies/Adverse Reactions: Insulins - Human [Insulins, Human] Allergy (Intermediate, Verified 06/16/19 00:02) RASH aspirin [Aspirin] Allergy (Verified 06/16/19 00:02) Penicillins Allergy (Verified 06/16/19 00:02) simvastatin [Simvastatin] Allergy (Verified 06/16/19 00:02) Past Medical History - General Information source: Patient - Social History Smoking Status: Never Smoker Cigarette use (# per day): No Chew tobacco use (# tins/day): No Smoking Education Provided: No Frequency of alcohol use: None Drug Abuse: None Family History: Reviewed & Not Pertinent Patient has suicidal ideation: No Patient has homicidal ideation: No - Past Medical History Cardiac Medical History: Reports: Hx Hypertension Pulmonary Medical History: Reports: Hx Bronchitis Endocrine Medical History: Reports: Hx Diabetes Mellitus Type 2 Malignancy Medical History: Reports Hx Lymphoma - Non-Hodgkins Musculoskeletal Medical History: Reports Hx Arthritis - SHOULDERS, RIGHT KNEE Past Surgical History: Reports: Hx Cholecystectomy - Immunizations Hx Diphtheria, Pertussis, Tetanus Vaccination: Yes Hx Pneumococcal Vaccination: 05/11/14 Review of Systems - Review of Systems Constitutional: No symptoms reported EENT: No symptoms reported Cardiovascular: No symptoms reported Respiratory: No symptoms reported Gastrointestinal: See HPI. denies: Abdominal pain Genitourinary: No symptoms reported Male Genitourinary: No symptoms reported Musculoskeletal: See HPI, Other - Left side groin pain Skin: No symptoms reported Hematologic/Lymphatic: No symptoms reported Neurological/Psychological: No symptoms reported -: Yes All other systems reviewed and negative Physical Exam - Vital signs Vitals: Temp Pulse Resp BP Pulse Ox 97.9 F 88 18 129/61 H 98 06/15/19 23:11 06/15/19 23:11 06/15/19 23:11 06/15/19 23:11 06/15/19 23:11 - Notes Notes: Physical Exam: General: Alert, appears uncomfortable. HEENT: Normocephalic. Atraumatic. PERRL. Extraocular movements intact. Oropharynx clear. Neck: Supple. Non-tender. Respiratory: No respiratory distress. Clear and equal breath sounds bilaterally. Cardiovascular: Regular rate and rhythm. Abdominal: Minimal LLQ tenderness to palpation. No distension. Normal Bowel Sounds. Back: No gross abnormalities. Extremities: Moves all four extremities. Upper extremities: Normal inspection. Normal ROM. Lower extremities: No edema. Left groin, pubic bone, proximal medial thigh up into the groin are all tender to palpation. Exquisite pain with palpation to pelvic bone and the groin insertion. Adduct resistance results in severe pain. Testicular is non-tender. Neurological: Normal cognition. AAOx4. Normal speech. Psychological: Normal affect. Normal Mood. Skin: Warm. Dry. Normal color. Course - Vital Signs Vital signs: Temp Pulse Resp BP Pulse Ox 97.7 F 77 18 146/95 H 97 06/16/19 07:07 06/16/19 07:07 06/16/19 07:07 06/16/19 07:07 06/16/19 07:07 - Laboratory Result Diagrams: 06/16/19 02:13 06/16/19 02:13 Laboratory results interpreted by me: 06/16/19 06/16/19 06/16/19 02:13 02:13 02:43 WBC 13.5 H RDW 15.8 H Lymph % (Auto) 11.1 L Absolute Neuts (auto) 10.6 H Seg Neutrophils % 78.4 H Carbon Dioxide 20 L Glucose 117 H Urine Protein 30 H Urine Ketones TRACE H Urine Ascorbic Acid 40 H - Diagnostic Test Radiology reviewed: Image reviewed, Reports reviewed - Scrotal ultrasound showed bilateral hydroceles. Hip x-ray shows osteoarthritis. Discharge - Discharge Clinical Impression: Strain of left groin Condition: Stable Disposition: HOME, SELF-CARE Additional Instructions: Inguinal Strain You have an inguinal strain, also known as a pulled groin. This injury causes pain where the lower abdominal wall meets the upper leg. The strain can affect several different muscles and tendons. When it occurs during running, the injury usually affects the tendon or upper muscle fibers of the thigh muscles. With weight lifting, it's the lower fibers of the abdominal wall muscles that are most often strained. Running, lifting, squatting, or even walking can cause pain. A strain can take a few weeks to heal. Apply ice packs during the first couple of days following the injury. Antiinflammatory pain medication can help. Avoid lifting, running, jumping, and other activities that provoke pain. No hernia was found. But sometimes a hernia can begin with the same symptoms as a strain of the groin. If you find a lump or bulge in the groin, pain or swelling in the testicle, abdominal cramping, or vomiting, you should return for re-examination. Take the medication as prescribed for pain as needed. Use the walker whenever you have to get up and walk. Limit standing and walking for the next several days. Use ice packs the first few days. Follow-up with Dr. Mendoza if not improving. RETURN TO THE EMERGENCY ROOM IF ANY NEW OR WORSENING SYMPTOMS. Prescriptions: Oxycodone HCl/Acetaminophen [Percocet 5-325 mg Tablet] 1 tab PO ASDIR PRN #15 tablet PRN Reason: For Pain Walker [Ultra-Light Rollator] 1 each MC DAILY 30 Days #1 each Referrals: LISA MENDOZA MD [Primary Care Provider] - Follow up in 1 week Scribe Attestation: 06/16/19 06:52 I personally performed the services described in the documentation, reviewed and edited the documentation which was dictated to the scribe in my presence, and it accurately records my words and actions. I personally performed the services described in the documentation, reviewed and edited the documentation which was dictated to the scribe in my presence, and it accurately records my words and actions.
== END 2019-06-16 07:25 | disposition home or self-care (01) ==
LOC: ER 22:56
DX: S39.013A Strain of muscle, fascia and tendon of pelvis, initial encounter (principal); X58.XXXA Exposure to other specified factors, initial encounter; R10.814 Left lower quadrant abdominal tenderness; I10 Essential (primary) hypertension; E11.9 Type 2 diabetes mellitus without complications; Z88.8 Allergy status to other drugs, medicaments and biological substances; Z88.0 Allergy status to penicillin
CPT/HCPCS: 99284; 36415; 85025; 80053; 81001; 73502; 76870; 93976; A9270 ×4; J3490

== ENCOUNTER → 2019-10-13 | Outpatient (CLI) | payer MEDICARE, OTHER ==
[2019-10-13 13:56] LABS: ABSOLUTE EOSINOPHILS # (AUTO) 0.1 10^3/uL (0.0-0.6); ABSOLUTE MONOCYTES (AUTO) 1.1 10^3/uL (0.1-1.4); ABSOLUTE NEUT (AUTO) 5.2 10^3/uL (1.7-8.2); BASOPHILS % (AUTO) 0.4 % (0-2); EOSINOPHILS % (AUTO) 1.4 % (0-6); HEMATOCRIT 32.4 % (37.9-51.0); HEMOGLOBIN 10.9 g/dL (13.5-17.0); LYMPHOCYTES % (AUTO) 23.9 % (13-45); MEAN CORPUSCULAR HEMOGLOBIN 29.7 pg (27.0-33.4); MEAN CORPUSCULAR HGB CONC 33.7 g/dL (32.0-36.0); MEAN CORPUSCULAR VOLUME 88 fl (80-97); MONOCYTES % (AUTO) 13.3 % (3-13); PLATELET COUNT 527 10^3/uL (150-450); RED BLOOD COUNT 3.68 10^6/uL (4.35-5.55); RED CELL DISTRIBUTION WIDTH 17.6 % (11.5-14.0); TOTAL CELLS COUNTED % (AUTO) 100 %; WHITE BLOOD COUNT 8.5 10^3/uL (4.0-10.5)
[2019-10-13 14:21] LABS: C-REACTIVE PROTEIN 36.5 mg/L (<10.0)
[2019-10-13 14:49] LABS: ERYTHROCYTE SEDIMENTATION RATE 111 mm/hr (0-20)
[2019-10-15 11:21] LABS: LYME DISEASE IGM AB <0.80 index (0.00-0.79)
== END ==
LOC: OD 12:40
PROVIDERS: ATTEND Orthopaedic Surgery
DX: M25.562 Pain in left knee (principal)
CPT/HCPCS: 36415; 84550; 85025; 85652; 86038; 86140; 86431; 86617; 86618

== ENCOUNTER → 2019-11-14 | Outpatient (CLI) | payer MEDICARE, OTHER ==
--- NOTE | 2019-11-14 17:19 | RADIOLOGY REPORT (SQ) ---
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 TECHNIQUE: Multiplanar imaging of the left leg to include T1-weighted, postcontrast T1-weighted, and T2-weighted images. Field of view includes from just above the knee to the mid to distal leg. CONTRAST TYPE AND DOSE: 20 mL Prohance. RENAL FUNCTION: Not indicated. ACR Type II contrast agent associated with few, if any, unconfounded cases of NSF LIMITATIONS: None. FINDINGS: BONE MARROW: No marrow signal alteration. Specifically no marrow replacement or marrow ed alvin. No evidence for osteomyelitis. No cortical break through. SOFT TISSUES: There is a sizable Dexter's cyst in the usual location. This measures up to almost 18 c m craniocaudal extent. 5 x 8 cm in the axial plane. Expected per synovial enhancement without solid portion. Small knee joint effusion, also with synovial enhancement. The knee synovium looks slight ly thickened. OTHER: No other significant finding. IMPRESSION: 1. No solid mass detected. 2. Large Dexter's cyst. 3. Mild knee synovitis suspected. TECHNICAL DOCUMENTATION: JOB ID: [id number] 2010 [employer]- All Rights Reserved Reading location - IP/workstation name: [email or web address]
== END ==
LOC: RAD 15:34
PROVIDERS: ATTEND Internal Medicine
DX: C82.38 Follicular lymphoma grade IIIa, lymph nodes of multiple sites (principal); M71.22 Synovial cyst of popliteal space [Baker], left knee
CPT/HCPCS: 82565; 73720; A9576

== ENCOUNTER → 2020-03-05 | Outpatient (CLI) | payer MEDICARE, OTHER ==
--- NOTE | 2020-03-05 14:54 | RADIOLOGY REPORT (SQ) ---
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 TECHNIQUE: Axial images acquired through the brain without intravenous contrast. Images reviewed wi th bone, brain and subdural windows. Additional sagittal and coronal reconstructions were generated. Images stored on PACS. All CT scanners at this facility use dose modulation, iterative reconstruction, and/or weight based d osing when appropriate to reduce radiation dose to as low as reasonably achievable (ALARA). [facility]: Dose Right [facility]: CareDose [facility]: Dose Right [facility]: Teradose 4D [facility]: [employer] RADIATION DOSE: mGy. LIMITATIONS: None. FINDINGS: VENTRICLES: Normal size and contour. CEREBRUM: No masses. No hemorrhage. No midline shift. No evidence for acute infarction. Normal gra y/white matter differentiation. No areas of low density in the white matter. CEREBELLUM: No masses. No hemorrhage. No alteration of density. No evidence for acute infarction. EXTRAAXIAL SPACES: No fluid collections. No masses. ORBITS AND GLOBE: No intra- or extraconal masses. Normal contour of globe without masses. CALVARIUM: No fracture. PARANASAL SINUSES: No fluid or mucosal thickening. SOFT TISSUES: Scalp lesion previously described on prior MRI is no longer identified. There is very slight asymmetric soft tissue at the site but no focal mass. OTHER: No other significant finding. IMPRESSION: No acute intracranial event. No evidence of metastatic disease on this non contrasted s tudy. EVIDENCE OF ACUTE STROKE: NO. COMMENT: Quality ID # [id number]: Final reports with documentation of one or more dose reduction techniques (e.g., Automated exposure control, adjustment of the mA and/or kV according to patient size, use of iterative reconstruction technique) TECHNICAL DOCUMENTATION: JOB ID: [id number] 2010 [employer]- All Rights Reserved Reading location - IP/workstation name: [email or web address]
--- NOTE | 2020-03-05 16:29 | RADIOLOGY REPORT (SQ) ---
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 Cranial radiation. COMPARISON: 04/30/2018 TECHNIQUE: Post IV contrasted scanning from skull base through lung apices with review of bone, soft tissue and lung windows. Reconstructed coronal and sagittal MPR images reviewed. All images stored on PACS. All CT scanners at this facility use dose modulation, iterative reconstruction, and/or weight based d osing when appropriate to reduce radiation dose to as low as reasonably achievable (ALARA). [facility]: Dose Right [facility]: CareDose [facility]: Dose Right [facility]: Teradose 4D [facility]: [employer] CONTRAST TYPE AND DOSE: contrast/concentration: Isovue 350.00 mmol/ml; Total Contrast Delivered: 70. 0 ml; Total Saline Delivered: 40.0 ml RENAL FUNCTION: GFR > 60. RADIATION DOSE: CT Rad equipment meets quality standard of care and radiation dose reduction techniq ues were employed. CTDIvol: 48.5 mGy. DLP: 904 mGy-cm. . LIMITATIONS: None. FINDINGS: SKULL BASE: Intact. MAJOR SALIVARY GLANDS: No solid or cystic masses. No inflammatory changes. LYMPHADENOPATHY: There is no cervical adenopathy. No supraclavicular adenopathy. Numerous small ant erior mediastinal lymph nodes/soft tissue nodules measuring up to 7 mm diameter, stable from previous examination. No middle mediastinal or hilar adenopathy is identified. MUCOSAL MASSES OR ASYMMETRY: No mucosal masses or asymmetry. LARYNX/CORDS: No abnormal findings. VASCULAR STRUCTURES: Circumferential stenosis of the proximal left internal carotid artery is again n oted, improved since prior exam. LUNG APICES: A 2 mm subpleural nodule along the left fissure is stable. No new pulmonary nodules. N o focal consolidation. BONES: Intact. Spondylosis and degenerative disc disease predominantly at C6-C7, stable. No suspici ous bone lesions. THYROID: Normal size. No masses. PARANASAL SINUSES: 8 mm polypoid mucosal thickening in the right maxillary sinus. No air-fluid level s. OTHER: No other significant finding. IMPRESSION: 1. Persistent soft tissue nodules in the anterior mediastinum consistent with thymic tissue or anteri or mediastinal adenopathy, stable over previous examinations. No new cervical adenopathy. 2. Improved appearance of the proximal left internal carotid artery since prior examination. TECHNICAL DOCUMENTATION: JOB ID: [id number] Quality ID # [id number]: Final reports with documentation of one or more dose reduction techniques (e.g., Au tomated exposure control, adjustment of the mA and/or kV according to patient size, use of iterative reconstruction technique) 2010 [employer]- All Rights Reserved Reading location - IP/workstation name: [email or web address]
== END ==
LOC: RAD 13:40
PROVIDERS: ATTEND Internal Medicine
DX: C82.38 Follicular lymphoma grade IIIa, lymph nodes of multiple sites (principal)
CPT/HCPCS: 70450; 70491; 82565